=== PATIENT | male | born 1980 | race Caucasian/White ===

== ENCOUNTER → 2017-12-28 12:42 | Outpatient (CLI) | payer OTHER, SELFPAY ==
--- NOTE | 2017-12-28 | DI.MRI.S_ITS ---
PROCEDURE: MR ANKLE RT WO CON INDICATIONS: FASCITIS BILATERAL TECHNIQUE: Noncontrast sagittal T1 spin echo and T2 fast spin echo with fat saturation, axial proton density fast spin echo and T2 fast spin echo with fat saturation, coronal T1 spin echo and T2 fast spin echo with fat saturation through the ankle/hindfoot. COMPARISON: [facility], MR, MR ANKLE LT WO CON, 12/28/2017, 13:04. FINDINGS: Image quality: Excellent. Bones and joints: No bone marrow contusions or fractures. No hindfoot coalitions. No osteochondral injuries of the talar dome. No pathologic joint effusions. Medial structures: The posterior tibialis, flexor digitorum longus, and flexor hallucis longus tendons are intact. There is mild fluid surrounding the posterior tibial tendon. The posterior tibial neurovascular bundle appears normal within the tarsal tunnel, without extrinsic mass effect. The deep layer (anterior and posterior tibiotalar ligaments) and superficial layer (tibionavicular, tibiospring, and tibiocalcaneal ligaments) of the deltoid ligament appear normal. The spring ligament components (superomedial calcaneonavicular, medioplantar oblique calcaneonavicular, and inferoplantar longitudinal ligaments) are intact. Lateral structures: The anterior talofibular, calcaneofibular, and posterior talofibular ligaments appear intact. More superiorly, the anterior and posterior tibiofibular ligaments appear intact, as is the intermalleolar ligament. The tibiofibular syndesmosis is normal in width at 2 mm or less. The peroneus longus and brevis tendons demonstrate normal location and morphology. Adjacent bony peroneal tubercle and retrotrochlear prominence are normal in size. The sinus tarsi demonstrates normal fatty signal, without edema, fibrosis, or cyst formation. Visualized sinus tarsi components (cervical ligament, interosseous talocalcaneal ligament, roots of the inferior extensor retinaculum) appear normal. The calcaneonavicular and calcaneocuboid components of the bifurcate ligament appear intact. The dorsal calcaneocuboid ligament appears intact. Anterior structures: The tibialis anterior, extensor hallucis longus, and extensor digitorum longus tendons appear intact. The dorsal talonavicular ligament appears intact. Posterior and plantar structures: Achilles tendon is intact. Mild plantar fasciitis involving the medial band, at the calcaneal attachment. IMPRESSION: Mild plantar fasciitis involving the medial band at the calcaneal attachment. Mild posterior tibialis tenosynovitis Dictated by: Joshua Douglass M.D. on 12/28/2017 at 15:05 Approved by: Joshua Douglass M.D. on 12/28/2017 at 15:10
--- NOTE | 2017-12-28 | DI.MRI.S_ITS ---
PROCEDURE: MR ANKLE LT WO CON INDICATIONS: FASCITIS BILATERAL TECHNIQUE: Noncontrast sagittal T1 spin echo and T2 fast spin echo with fat saturation, axial proton density fast spin echo and T2 fast spin echo with fat saturation, coronal T1 spin echo and T2 fast spin echo with fat saturation through the ankle/hindfoot. COMPARISON: None. FINDINGS: Image quality: Excellent. Bones and joints: No bone marrow contusions or fractures. No hindfoot coalitions. No osteochondral injuries of the talar dome. No pathologic joint effusions. Medial structures: The posterior tibialis, flexor digitorum longus, and flexor hallucis longus tendons are intact. However there is mild posterior tibialis and flexor digitorum longus tenosynovitis. The posterior tibial neurovascular bundle appears normal within the tarsal tunnel, without extrinsic mass effect. The deep layer (anterior and posterior tibiotalar ligaments) and superficial layer (tibionavicular, tibiospring, and tibiocalcaneal ligaments) of the deltoid ligament appear normal. The spring ligament components (superomedial calcaneonavicular, medioplantar oblique calcaneonavicular, and inferoplantar longitudinal ligaments) are intact. Lateral structures: The anterior talofibular, calcaneofibular, and posterior talofibular ligaments appear intact. There is soft tissue edema surrounding the anterior talofibular ligament More superiorly, the anterior and posterior tibiofibular ligaments appear intact, as is the intermalleolar ligament. The tibiofibular syndesmosis is normal in width at 2 mm or less. The peroneus longus and brevis tendons demonstrate normal location and morphology however there is surrounding fluid in keeping with peroneal tenosynovitis. Adjacent bony peroneal tubercle and retrotrochlear prominence are normal in size. The sinus tarsi demonstrates normal fatty signal, without edema, fibrosis, or cyst formation. Visualized sinus tarsi components (cervical ligament, interosseous talocalcaneal ligament, roots of the inferior extensor retinaculum) appear normal. The calcaneonavicular and calcaneocuboid components of the bifurcate ligament appear intact. The dorsal calcaneocuboid ligament appears intact. Anterior structures: The tibialis anterior, extensor hallucis longus, and extensor digitorum longus tendons appear intact. The dorsal talonavicular ligament appears intact. Posterior and plantar structures: Achilles tendon is intact although there is mild adjacent soft tissue edema at the calcaneal insertion. There is thickening of the medial band of the plantar fascia at the calcaneal attachment. IMPRESSION: Mild plantar fasciitis involving the medial band at the calcaneal attachment. Mild posterior tibialis, flexor digitorum longus, peroneal longus and brevis tenosynovitis. Minimal distal insertional Achilles tendinitis Possible mild anterior talofibular ligament sprain without rupture. Please correlate clinically. Dictated by: Joshua Douglass M.D. on 12/28/2017 at 14:48 Approved by: Joshua Douglass M.D. on 12/28/2017 at 15:05
== END ==
PROVIDERS: Visit Provider Podiatrist
DX: M72.2 Plantar fascial fibromatosis (principal); M65.862 Other synovitis and tenosynovitis, left lower leg; M65.861 Other synovitis and tenosynovitis, right lower leg
CPT/HCPCS: 73721

== ENCOUNTER 2018-02-18 08:47 | Day surgery (SDC) | payer OTHER, SELFPAY ==
[2018-02-07 14:35] VITALS: BMI 23.6
[2018-02-18] VITALS (7 sets, daily range): BP systolic 133–153; BP diastolic 88–105; PULSE 70–88; RESP 15–17; TEMP 36.4–36.7; O2SAT 97–99; BMI 22.2
--- NOTE | 2018-02-18 12:12 | PM.PREOP ---
Pre-operative Note Interval Note Pre-op Check: Yes History & Physical Reviewed by Physician Changes: Yes
[2018-02-18] MEDS: CLINDAMYCIN 600 MG/50 ML PIGGYBACK 50 MG IV (12:20)
--- NOTE | 2018-02-18 12:41 | SUR.OPER ---
Supine on padded OR bed, head on pillow, arms secured on padded arm boards at <90 degrees abduction, legs uncrossed, safety belt at thigh, tape over blanket over non operative leg .
[2018-02-18] MEDS: BUPIVACAINE 0.5% (PF) VIAL 30 ML INJ (12:47)
[2018-02-18] MEDS: LABETALOL 20 MG/4 ML SYRINGE 10 MG IV (13:18)
[2018-02-18] MEDS: OXYCODONE/ACETAMINOPHEN 5/325 TABLET 1 TAB PO (14:06)
--- NOTE | 2018-02-18 14:49 | PM.OP.1 ---
Operative Date/Time/Diagnoses Date of procedure: 02/18/18 Time of procedure: 14:49 Pre-op diagnosis: Right plantar fasciitis Post-op diagnosis: same Procedure & Clinicians Procedure: Right endoscopic plantar fascial release Same procedure as scheduled: Yes Indications: Painful ongoing plantar fasciitis Surgeon: Hyun Mendes Click Yes if Unassisted: Yes Anesthesia Type: General Operative Notes Closure Type: primary Specimen(s): none sent Estimated Blood Loss (mL): 10 Blood products transfused: none Procedure in detail: The patient was brought to the operating room and placed on the operating table in supine position. Following induction of general anesthesia, local anesthesia was attained the patient's right heel. It was then prepped and draped in usual aseptic manner. After verification of anesthesia the tourniquet was inflated to the right ankle. An incision was made over the medial heel just distal to the medial calcaneal tubercle. After blunt dissection to the origin point of the medial fascial band, a fascial elevator was used to gently remove some of the fat from the fascial band. Once more fully isolated, the trochar and obturator were placed in the incision from medial to lateral. An incision was made laterally to allow it's exit. The canal was cleaned using cotton tipped applicators to allow better visualization. The arthroscope was inserted laterally and a probe medially. Pictures were taken of the fascia then the probe was replaced wtih a blade. While dorsiflexing the forefoot, approximately one third to one half of the plantar fascia was transected from the central to medial aspect. Underlying this was seen the muscle. Pictures taken. Instrumentation removed. The area was irrigated with copious amounts of normal saline. After the tourniquet was deflated, a prompt hyperemic response was seen to the foot. Closed skin with 4-0 nylon. The incisions were dressed with a sterile lightly compressive dressing and an KERRY, as he had not yet retrieved his postsurgical boot. The patient was transferred to the PACU with vital signs stable and vascular status intact. Complications: none Condition: stable Disposition: PACU Plan for aftercare: Following a period of postoperative monitoring the patient will be discharged home on written and oral postoperative instructions including keeping the dressing dry and intact avoiding ambulation to the foot he is going directly from here to the prosthetics group where there is a boot awaiting him. We reviewed once again the need for him to wear the boot on a daily and nightly basis x3 weeks following the procedure especially at night. His 1st postoperative visit is dressing change or possible removal of suture and he will generally begin partial to full weight-bearing at about the 10 days to 14 days time frame.
== END 2018-02-18 14:45 | disposition home or self-care (01) ==
PROVIDERS: PCP Radiology Diagnostic Radiology; Referring Provider Family Medicine; Visit Provider Podiatrist
PROC: (CPT 29893; principal; 2018-02-18 11:15)
DX: M72.2 Plantar fascial fibromatosis (principal); I10 Essential (primary) hypertension
CPT/HCPCS: 29893; J1100; J2405; J2704; J3010

== ENCOUNTER 2018-04-22 14:16 | Day surgery (SDC) | payer OTHER, SELFPAY ==
[2018-04-18 11:04] VITALS: BMI 31.4
[2018-04-22] VITALS (10 sets, daily range): BP systolic 128–153; BP diastolic 82–106; PULSE 78–95; RESP 11–18; TEMP 36.1–36.5; O2SAT 89–98; BMI 31.7
[2018-04-22] MEDS: LACTATED RINGERS 1,000 ML 42 ML IV (15:17)
--- NOTE | 2018-04-22 17:36 | PM.PREOP ---
Pre-operative Note Interval Note Pre-op Check: Yes History & Physical Reviewed by Physician Changes: No
--- NOTE | 2018-04-22 17:38 | P.OP_ITS ---
Operative Date/Time/Diagnoses Date of procedure: 04/22/18 Time of procedure: 17:37 Pre-op diagnosis: Left plantar fasciitis Post-op diagnosis: same Procedure & Clinicians Procedure: Left endoscopic plantar fascial release Indications: Painful left plantar fasciitis Surgeon: Hyun Mendes Click Yes if Unassisted: Yes Anesthesia Type: General Operative Notes Closure Type: primary Specimen(s): none sent Estimated Blood Loss (mL): 10 Blood products transfused: none Procedure in detail: The patient was brought to the operating room and placed on the operating table in supine position. Following induction of general anesthesia, local anesthesia was attained the patient's left heel. It was then prepped and draped in usual aseptic manner. After verification of anesthesia the tourniquet was inflated to the left calf. An incision was made over the medial heel just distal to the medial calcaneal tubercle. After blunt dissection to the origin point of the medial fascial band , a fascial elevator was used to gently remove some of the fat from the fascial band. Once more fully isolated, the trochar and obturator were placed in the incision from medial to lateral. An incision was made laterally to allow it's exit. The canal was cleaned using cotton tipped applicators to allow better visualization. The arthroscope was inserted laterally and a probe medially. Pictures were taken of the fascia then the probe was replaced with a blade. While dorsiflexing the forefoot, approximately one third to one half of the plantar fascia was transected from the central to medial aspect. Underlying this was seen the muscle. I was not able to see the fascia immediately medially and just muscle instead. So I replaced the cannula and checked again and still saw just muscle there. Next I redirected the cannula more plantarly across and that was when I was able to see more fascia medially. This required a new lateral incision. The same procedure was performed and resected. Pictures taken. Instrumentation removed. I still did not feel the extent of the medial fascia was released after I probed with a hemostat, so I was able to visualize and isolate the very medial edge on the calcaneus that had not yet been released. Using a pair of metzenbaums it was then gently released from the medial tubercle, which was the final portion of the medial 1/2 of the fascia intended to be released. The area was irrigated with copious amounts of normal saline. After the tourniquet was deflated, a prompt hyperemic response was seen to the foot. Cauterization used for bleeders. Closed skin with 4-0 nylon. The incisions were dressed with a sterile lightly compressive dressing and an KERRY, and postsurgical boot. The patient was transferred to the PACU with vital signs stable and vascular status intact. Complications: none Condition: stable Disposition: PACU Plan for aftercare: Following a period of postoperative monitoring, the patient will be discharged home on written and oral postoperative instructions including keeping the dressing dry and intact, avoiding significant ambulation on the foot, icing and elevating the foot when seated home. DVT prevention techniques have been reviewed. For the 1st postoperative visit the dressing will be changed and the next likely the sutures to be removed. He should be wearing the boot at night x3 weeks and during the day at minimum until I see him at his 1st postoperative visit.
[2018-04-22] MEDS: CLINDAMYCIN 600 MG/50 ML PIGGYBACK 50 MG IV (17:40)
--- NOTE | 2018-04-22 18:01 | SUR.OPER ---
Supine on padded OR bed, head on pillow, arms secured on padded arm boards at <90 degrees abduction, legs uncrossed, safety belt at thigh, tape over blanket over lower legs.
[2018-04-22] MEDS: BUPIVACAINE 0.5% (PF) VIAL 30 ML INJ (18:09)
[2018-04-22] MEDS: fentaNYL 100 MCG/2 ML INJ 50 MCG IV ×2 (19:13→19:21)
[2018-04-22] MEDS: HYDROCODONE/ACET 5/325 TABLET 2 TAB PO (19:26)
[2018-04-22] MEDS: ONDANSETRON 4 MG/2 ML INJ IV (19:39)
--- NOTE | 2018-04-22 20:28 | SUR.PHASEII ---
Pt dressed with assistance from spouse. c/o nausea after dressing. Queaze and gingerale provided. Pt reported nausea improved.
== END 2018-04-22 20:19 | disposition home or self-care (01) ==
PROVIDERS: PCP Radiology Diagnostic Radiology; Visit Provider Podiatrist
PROC: (CPT 29893; principal; 2018-04-22 15:15)
DX: M72.2 Plantar fascial fibromatosis (principal); I10 Essential (primary) hypertension
CPT/HCPCS: 29893; J1100; J2405; J2704; J3010